=== PATIENT | female | born 1950 | race Caucasian/White ===

== ENCOUNTER → 2025-03-16 | Outpatient (CLI) | payer OTHER, SELFPAY | END | disposition home or self-care (01) | PROVIDERS: Referring Provider Family Medicine Geriatric Medicine; Visit Provider Family Medicine Geriatric Medicine | DX: L03.113 Cellulitis of right upper limb (principal); S41.101A Unspecified open wound of right upper arm, initial encounter | CPT/HCPCS: 87070; 87077; 87186; 87205 ==

== ENCOUNTER → 2025-06-17 | Outpatient (CLI) | payer OTHER, SELFPAY ==
[2025-06-17 23:30] LABS: Xtra Tube Kwok EXTRA TUBE
== END | disposition home or self-care (01) ==
LOC: LAB 15:28
PROVIDERS: PCP Family Medicine Geriatric Medicine; Referring Provider Family Medicine Geriatric Medicine; Visit Provider Family Medicine Geriatric Medicine
DX: E03.9 Hypothyroidism, unspecified (principal)
CPT/HCPCS: 36415; 84443

== ENCOUNTER → 2025-07-19 | Outpatient (CLI) | payer MEDICARE, SELFPAY ==
--- NOTE | 2025-07-19 14:28 | CT_ITS ---
PROCEDURE: EXTREMITY UPPER WITHOUT CONTRA 07/19/2025 REASON FOR EXAM: FRACTURE RIGHT HUMERUS TECHNIQUE: Procedure Code: CTEUWO Modality: CT Procedure: EXTREMITY UPPER WITHOUT CONTRA CT of the right shoulder is performed without contrast. Sagittal axial and coronal reformatted images are submitted for interpretation. One or more dose reduction techniques were used (e.g., Automated exposure control, adjustment of the mA and/or kV according to patient size, use of iterative reconstruction technique. RADIATION DOSE SUMMARY: CTDlvol: 25.09 mGy DLP: 535 mGycm COMPARISON: None FINDINGS: Bones: Severely comminuted impacted fracture through the proximal humerus involving the greater trochanter and surgical neck. There is no dislocation of the glenohumeral joint. Small joint effusion is present. No loose bodies identified. The acromion clavicle and adjacent right ribcage is normal. Lungs are clear. No lymphadenopathy. No mediastinal mass. No radiopaque foreign body. CT/Extremity Upper without Contra IMPRESSION: Acute comminuted impacted fracture through the proximal humerus involving the s urgical neck and greater tuberosity. Small joint effusion. No dislocation. Degenerative changes of the acromioclavicular and glenohumeral joint. Reading Location: [id number]
== END | disposition home or self-care (01) ==
LOC: CT 14:27
PROVIDERS: PCP Family Medicine Geriatric Medicine
DX: S42.224A 2-part nondisplaced fracture of surgical neck of right humerus, initial encounter for closed fracture (principal)
CPT/HCPCS: 73200